=== PATIENT | female | born 1955 | race Caucasian/White ===

== ENCOUNTER → 2016-12-14 | Outpatient (CLI) | payer BC ==
[~2016-12-14] MED LIST: ASPI81TA28 PO; GLUCTAB7 PO; MISC4CAP PO; MULT-614 PO; NXM/40 PO; SIMV5TAB5 PO; [UNRECOGNIZED DRUG - CODE] PO
--- NOTE | 2016-12-14 09:03 | DIAGNOSTIC IMAGING REPORT ---
C-SPINE ROUTINE 4 OR 5 VIEWS CLINICAL HISTORY: Persistent neck pain localized to the C7/T1 area COMPARISON STUDY: No previous studies for comparison. FINDINGS: The prevertebral soft tissues are normal. No fractures or subluxations are visualized. There are degenerative changes most pronounced at the C4-5 and C5-C6 levels. There are small uncinate spurs with minor foraminal encroachment at the C4-5 and C5-C6 levels. IMPRESSION: Degenerative changes the C4-5 and C5-6 levels. Electronically signed by: Jamshid Moon M.D. 12/14/2016 9:01 AM Dictated Date/Time: 12/14/2016 9:00 AM
== END | disposition home or self-care (01) ==
LOC: C.RADBC 08:13
PROVIDERS: ATTEND Chiropractor
DX: M54.2 Cervicalgia (principal); M50.321 Other cervical disc degeneration at C4-C5 level; M50.322 Other cervical disc degeneration at C5-C6 level

== ENCOUNTER → 2016-12-15 | Outpatient (CLI) | payer BC ==
--- NOTE | 2016-12-16 12:40 | MAMMOGRAPHY REPORT ---
BILATERAL DIGITAL SCREENING MAMMOGRAM TOMOSYNTHESIS WITH CAD: 12/15/2016 CLINICAL HISTORY: Routine screening. Patient has no complaints. TECHNIQUE: Breast tomosynthesis in addition to standard 2D mammography was performed. Current study was also evaluated with a Computer Aided Detection (CAD) system. COMPARISON: Comparison is made to exams dated: 12/13/2015 mammogram, 12/08/2013 mammogram, 12/11/2014 mammogram, 11/18/2010 mammogram, 11/19/2011 mammogram - [facility], and 11/06/2008. BREAST COMPOSITION: There are scattered areas of fibroglandular density in both breasts. FINDINGS: Focal asymmetries in the upper outer posterior, and 6:00 middle to anterior right breast are stable on all available prior mammograms dating back to at least 11/06/2008, therefore likely be nign. No new suspicious mass, architectural distortion or cluster of microcalcifications is seen. IMPRESSION: ACR BI-RADS CATEGORY 1: NEGATIVE There is no mammographic evidence of malignancy. A 1 year screening mammogram is recommended. The p atient will receive written notification of the results. Approximately 10% of breast cancers are not detected with mammography. A negative mammographic repor t should not delay biopsy if a clinically suggestive mass is present. Alina Barnhart M.D. ay/:12/15/2016 17:37:15 Advertising Clerk: [place] AUSTIN(Alejandro)(M), [facility] letter sent: Normal 1/2 BI-RADS Code: ACR BI-RADS Category 1: Negative
== END | disposition home or self-care (01) ==
LOC: C.MAMM 15:21
PROVIDERS: ATTEND Obstetrics & Gynecology
DX: Z12.31 Encounter for screening mammogram for malignant neoplasm of breast (principal)

== ENCOUNTER → 2017-02-09 | Outpatient (CLI) | payer BC ==
[2017-02-09 10:48] LABS: BASO % 0.5 %; BASO ABS # 0.03 K/uL (0-0.2); COMPLETE YES; EOS % 1.8 %; HEMATOCRIT 45.2 % (37-47); IG% 0.3 %; LYMPH % 28.9 %; LYMPH ABS # 1.76 K/uL (1.2-3.4); MEAN CELL VOLUME 90.2 fL (80-100); MEAN CORPUSCULAR HEMOGLOBIN 30.3 pg (25-34); MEAN CORPUSCULAR HGB CONC 33.6 g/dl (32-36); MEAN PLATELET VOLUME 9.8 fL (7.4-10.4); MONO % 8.2 %; NEUT % 60.3 %; PLATELET COUNT 263 K/uL (130-400); RED BLOOD COUNT 5.01 M/uL (4.2-5.4); WHITE BLOOD COUNT 6.08 K/uL (4.8-10.8)
[2017-02-09 11:00] LABS: CALCIUM 9.1 mg/dl (8.5-10.1)
[2017-02-09 11:09] LABS: BLOOD UREA NITROGEN 20 mg/dl (7-18); BUN/CREATININE RATIO 20.6 (10-20); CARBON DIOXIDE 31 mmol/L (21-32); CHLORIDE 107 mmol/L (98-107); CREATININE 0.95 mg/dl (0.60-1.20); GLUCOSE 97 mg/dl (70-99); POTASSIUM 4.5 mmol/L (3.5-5.1); SODIUM 141 mmol/L (136-145)
[2017-02-09 11:10] LABS: ALT/SGPT 36 U/L (12-78); CHOLESTEROL 194 mg/dl (0-200); TRIGLYCERIDES 107 mg/dl (0-150); VERY LOW DENSITY LIPOPROT CALC 21 mg/dl
[2017-02-09 11:11] LABS: ALB/GLOB RATIO 1.1 (0.9-2); ALKALINE PHOSPHATASE 76 U/L (45-117); AST/SGOT 24 U/L (15-37); CHOLESTEROL/HDL RATIO 2.9; HDL CHOLESTEROL 67 mg/dl; LDL CHOLESTEROL CALCULATED 106 mg/dl
== END | disposition home or self-care (01) ==
LOC: C.LABBC 07:41
PROVIDERS: ATTEND Internal Medicine Pulmonary Disease
DX: M47.812 Spondylosis without myelopathy or radiculopathy, cervical region (principal)

== ENCOUNTER → 2017-04-05 | Outpatient (CLI) | payer BC ==
[2017-04-05 13:59] LABS: ESTIMATED AVERAGE GLUCOSE 114 mg/dl; HA1C FLAG Normal (Normal)
== END | disposition home or self-care (01) ==
LOC: C.LABBC 11:34
PROVIDERS: ATTEND Physician Assistant Medical
DX: R20.0 Anesthesia of skin (principal); R20.2 Paresthesia of skin

== ENCOUNTER → 2017-06-07 | Outpatient (CLI) | payer BC ==
--- NOTE | 2017-06-07 10:11 | DIAGNOSTIC IMAGING REPORT ---
ABDOMEN COMPLETE (US) HISTORY: Pain. Nausea. K21.9 Esophageal reflux [id number] Abdominal [id number]. COMPARISON: 09/11/2013 FINDINGS: Pancreas: The pancreas demonstrates a normal echotexture. Liver: Unremarkable. Gallbladder: Surgically absent CBD: 4 mm Kidneys: No evidence for right renal hydronephrosis. 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 Spleen: Normal in size. Aorta: Normal in caliber. IVC: Patent. IMPRESSION: 1. Prior cholecystectomy. 2. Remainder the study shows no acute process. The above report was generated using voice recognition software. It may contain grammatical, syntax or spelling errors. Electronically signed by: Nehemias Simons M.D. 06/07/2017 10:09 AM Dictated Date/Time: 06/07/2017 10:08 AM
== END | disposition home or self-care (01) ==
LOC: C.ULTRBC 09:27
PROVIDERS: ATTEND Physician Assistant Medical
DX: K21.9 Gastro-esophageal reflux disease without esophagitis (principal); R14.0 Abdominal distension (gaseous); Z90.49 Acquired absence of other specified parts of digestive tract

== ENCOUNTER → 2017-12-16 | Outpatient (CLI) | payer OTHER ==
--- NOTE | 2017-12-17 07:22 | MAMMOGRAPHY REPORT ---
BILATERAL DIGITAL SCREENING MAMMOGRAM TOMOSYNTHESIS WITH CAD: 12/16/2017 CLINICAL HISTORY: Routine screening. TECHNIQUE: Breast tomosynthesis in addition to standard 2D mammography was performed. Current study was also evaluated with a Computer Aided Detection (CAD) system. COMPARISON: Comparison is made to exams dated: 12/15/2016 mammogram, 12/13/2015 mammogram, 12/11/2014 m ammogram, 12/08/2013 mammogram, 11/22/2012 mammogram, and 11/19/2011 mammogram - [facility]. BREAST COMPOSITION: There are scattered areas of fibroglandular density in both breasts. FINDINGS: No suspicious masses, calcifications, or areas of architectural distortion are noted in ei ther breast. There has been no significant interval change compared to prior exams. Bilateral breast asymmetries are stable compared to prior exams. IMPRESSION: ACR BI-RADS CATEGORY 2: BENIGN There is no mammographic evidence of malignancy. A 1 year screening mammogram is recommended. The pa tient will receive written notification of the results. Approximately 10% of breast cancers are not detected with mammography. A negative mammographic report should not delay biopsy if a clinically suggestive mass is present. Lily Carter M.D. /:12/16/2017 15:00:08 Drywall Application Supervisor: Timi AUSTIN(R)(M), [facility] letter sent: Normal 1/2 BI-RADS Code: ACR BI-RADS Category 2: Benign
== END | disposition home or self-care (01) ==
LOC: C.MAMM 10:36
PROVIDERS: ATTEND Obstetrics & Gynecology
DX: Z12.31 Encounter for screening mammogram for malignant neoplasm of breast (principal)

== ENCOUNTER → 2018-05-04 | Day surgery (SDC) | payer OTHER ==
[2018-04-28 14:08] VITALS: BMI 28.0
[~2018-05-04] VITALS: Ht 157.5 cm; Wt 69.1 kg
[~2018-05-04] MED LIST changes: +LIDOCAINE HCL 2% 2 ML VIAL (20MG/ML) ONE; +PROPOFOL IV EMULSION 10 MG/ML 20 ML VIAL ONE; +SODIUM CHLORIDE 0.9% 500ML 500 ML IV ONE
[2018-05-04 11:10] VITALS: TEMP 36.5
[2018-05-04 11:11] VITALS: Ht 157.5 cm; Wt 69.1 kg
--- NOTE | 2018-05-04 11:49 | Endo History and Physical ---
History & Physical Date of Service: May 04, 2018. Chief Complaint: REFLUX, RECTAL BLEEDING Referring Physician: DR PIERRE History of Present Illness Reflux and rectal bleeding. Past Surgical History Hx Cardiac Surgery: No Hx Internal Defibrillator: No Hx Pacemaker: No Hx Abdominal Surgery: Yes (APPY, LIZZETH) Hx of Implantable Prosthesis: No Hx Post-Op Nausea and Vomiting: No Hx Cancer Surgery: No Hx Thoracic Surgery: No Hx Orthopedic: Yes (RT FOOT SECOND TOE GANGLION CYST SURGERY) Hx Urinary Tract Surgery: No Family History Polyp Social History Smoking Status: Never Smoker Hx Substance Use: No Hx Alcohol Use: Yes (OCCASIONALLY) Allergies Coded Allergies: Cephalexin (Unverified Allergy, Mild, ESOPHAGEAL SPASMS, 04/28/18) Omeprazole (Unverified Allergy, Mild, HEART PALPITATIONS, 04/28/18) Epinephrine (Verified Allergy, Unknown, HEART RACING, 04/28/18) Ibuprofen (Verified Allergy, Unknown, HIVES ? RELATED TO MOTRIN, 04/28/18) CAN TOLERATE ALEVE AND TYLENOL Sulfa Antibiotics (Verified Allergy, Unknown, RASH, 04/28/18) Current Medications Reported Home Medications Medications Dose Route/Sig Max Daily Dose Days Date Category Vitamin C Tr (Ascorbic Acid) 1,000 Mg Tab 1,000 Mg PO HS 05/29/14 Reported Align (Probiotic Product) 4 Mg Cap 4 Mg PO HS 05/29/14 Reported Zocor (Simvastatin) 5 Mg Tab 5 Mg PO HS 05/29/14 Reported Nexium (Esomeprazole Magnesium) 40 Mg Cap 40 Mg PO HS 05/29/14 Reported Glucosamine Chondroitin (Zhtghhmahye-Fzbrijqztgv-Znu C-) 1 Tab Tab 2 Tabs PO HS 05/29/14 Reported Centrum Silver Ultra Wome (Multiple Vitamins W/ Minerals) 1 Tab Tab 1 Tab PO HS 05/29/14 Reported Aspirin Ec (Aspirin) 81 Mg Tab 81 Mg PO HS 05/29/14 Reported Vital Signs Weight (Kilograms): 69.09 Height (Feet): 5 Height (Inches): 2 Date Time Temp Pulse Resp B/P (MAP) Pulse Ox O2 Delivery O2 Flow Rate FiO2 05/04/18 11:10 36.5 63 18 125/74 (91) 98 Room Air Physical Exam General Appearance: no apparent distress Respiratory/Chest: Auscultation: breath sounds normal Cardiovascular: Heart Auscultation: RRR Abdomen: Inspection & Palpation: soft Assessment and Plan stable for EGD and colonoscopy
--- NOTE | 2018-05-04 12:18 | Discharge Instructions ---
Endoscopy Patient Instructions Date / Procedure(s) Performed May 04, 2018. Colonoscopy, EGD Allergy Information Coded Allergies: Cephalexin (Unverified Allergy, Mild, ESOPHAGEAL SPASMS, 04/28/18) Omeprazole (Unverified Allergy, Mild, HEART PALPITATIONS, 04/28/18) Epinephrine (Verified Allergy, Unknown, HEART RACING, 04/28/18) Ibuprofen (Verified Allergy, Unknown, HIVES ? RELATED TO MOTRIN, 04/28/18) CAN TOLERATE ALEVE AND TYLENOL Sulfa Antibiotics (Verified Allergy, Unknown, RASH, 04/28/18) Discharge Date / Findings May 04, 2018. EGD showed normal esophagus, multiple fundic gland polyps Colonoscopy showed internal hemorrhoids Medication Instructions Stopped Medication(s): TAKES ASPIRIN DAILY LAST DOSE 05/03/18 Provider Instructions Activity Restrictions - No exercising or heavy lifting for 24 hours. - Do not drink alcohol the day of the procedure. - Do not drive a car or operate machinery until the day after the procedure. - Do not make any important decisions or sign important papers in 24 hours after the procedure. Following Day: - Return to full activity which may include returning to work/school. Diet Start your diet with liquids and light foods (jello, soup, juice, toast). Then eat your usual diet if not nauseated. Treatment For Common After Affects For mild abdominal pain, bloating, or excessive gas: - Rest - Eat lightly - Lie on right side Follow-Up Information Follow-up with DR PIERRE as scheduled Anesthesia Information What You Should Know You have had a procedure that required some medicine to reduce anxiety and discomfort. This treatment is called moderate sedation. After receiving the treatment, you may be sleepy, but you will be able to breathe on your own. The effects of the treatment may last for several hours. Follow these instructions along with Activity/Diet recommendations noted above: * Do NOT do anything where dizziness or clumsiness would be dangerous. * Rest quietly at home today, then you can be up and about tomorrow. * Have a responsible person stay with you the rest of today. * You may have had an I.V. today. If so, you may take the dressing off later today. Recommendations Call your doctor if: * Trouble breathing * Continuous vomiting for more than 24 hours * Temperature above 101 degrees * Severe abdominal pain or bloating * Pain not relieved by pain medicine ordered * There is increased drainage or redness from any incision * A large amount of rectal bleeding greater than 2-3 tablespoons. (If you had a polyp/s removed or have hemorrhoids, a small amount of blood - from the rectum is to be expected.) * You have any unanswered questions or concerns. IN THE EVENT OF A SERIOUS EMERGENCY, GO TO THE NEAREST EMERGENCY ROOM Your discharge instructions were prepared by provider Lillie Aguilar. Patient Instructions Signature Page Aminata Krishnamurthy Patient (or Guardian) Signature/Date: I have read and understand the instructions given to me by my caregivers. Caregiver/RN/Doctor Signature/Date: The above-named patient and/or guardian has received patient instructions on this date. + Original Patient Signature Page (only) stays with chart. Please make copy for patient.
--- NOTE | 2018-05-04 12:23 | GI REPORT ---
Patient Name: Aminata Mcgregor Procedure Date: 05/04/2018 11:56 AM Date of : 1955 Admit Type: Outpatient Age: 63 Gender: Female Attending MD: Lillie Aguilra MD Procedure: Upper GI endoscopy Providers: Lillie Aguilar MD Referring MD: Moris Gaines Md Indications: Heartburn, Follow-up of gastro-esophageal reflux disease Medicines: Monitored Anesthesia Care Complications: No immediate complications. Estimated Blood Loss: Estimated blood loss: none. Procedure: Pre-Anesthesia Assessment: - Prior to the procedure, a History and Physical was performed, and patient medications and allergies were reviewed. The patient is competent. The risks and benefits of the procedure and the sedation options and risks were discussed with the patient. All questions were answered and informed consent was obtained. Patient identification and proposed procedure were verified by the physician and the nurse in the procedure room. Mental Status Examination: normal. Airway Examination: normal oropharyngeal airway and neck mobility. Respiratory Examination: clear to auscultation. CV Examination: normal. ASA Grade Assessment: II - A patient with mild systemic disease. After reviewing the risks and benefits, the patient was deemed in satisfactory condition to undergo the procedure. The anesthesia plan was to use monitored anesthesia care (MAC). Immediately prior to administration of medications, the patient was re-assessed for adequacy to receive sedatives. The heart rate, respiratory rate, oxygen saturations, blood pressure, adequacy of pulmonary ventilation, and response to care were monitored throughout the procedure. The physical status of the patient was re-assessed after the procedure. After obtaining informed consent, the endoscope was passed under direct vision. Throughout the procedure, the patient's blood pressure, pulse, and oxygen saturations were monitored continuously. The scope was introduced through the mouth, and advanced to the second part of duodenum. The upper GI endoscopy was accomplished without difficulty. The patient tolerated the procedure well. Findings: The Z-line was regular and was found 39 cm from the incisors. The examined esophagus was normal. Multiple medium sessile polyps with no stigmata of recent bleeding were found in the gastric body. Biopsies were taken with a cold forceps for histology. Verification of patient identification for the specimen was done by the physician and nurse using the patient's name and date. The duodenal bulb and second portion of the duodenum were normal. Biopsies were taken with a cold forceps for histology. Impression: - Z-line regular, 39 cm from the incisors. - Normal esophagus. - Multiple gastric polyps likely fundic gland. Biopsied. - Normal duodenal bulb and second portion of the duodenum. Biopsied. Recommendation: - Await pathology results. - Perform a colonoscopy. Lillie Aguilar MD 05/04/2018 12:23:08 PM This report has been signed electronically. Note Initiated On: 05/04/2018 11:56 AM Number of Addenda: 0 I attest to the content of the Intraoperative Record and orders documented therein, exceptions below {[id number]}
--- NOTE | 2018-05-04 12:25 | GI REPORT ---
Patient Name: Aminata Mcgregor Procedure Date: 05/04/2018 12:04 PM Date of : 1955 Admit Type: Outpatient Age: 63 Gender: Female Attending MD: Lillie Aguilar MD Procedure: Colonoscopy Providers: Lillie Aguilar MD Referring MD: Moris Gaines Md Indications: Rectal bleeding Medicines: Monitored Anesthesia Care Complications: No immediate complications. Estimated Blood Loss: Estimated blood loss: none. Procedure: Pre-Anesthesia Assessment: - Prior to the procedure, a History and Physical was performed, and patient medications and allergies were reviewed. The patient is competent. The risks and benefits of the procedure and the sedation options and risks were discussed with the patient. All questions were answered and informed consent was obtained. Patient identification and proposed procedure were verified by the physician and the nurse in the procedure room. Mental Status Examination: alert and oriented. Airway Examination: normal oropharyngeal airway and neck mobility. Respiratory Examination: clear to auscultation. CV Examination: normal. ASA Grade Assessment: II - A patient with mild systemic disease. After reviewing the risks and benefits, the patient was deemed in satisfactory condition to undergo the procedure. The anesthesia plan was to use monitored anesthesia care (MAC). Immediately prior to administration of medications, the patient was re-assessed for adequacy to receive sedatives. The heart rate, respiratory rate, oxygen saturations, blood pressure, adequacy of pulmonary ventilation, and response to care were monitored throughout the procedure. The physical status of the patient was re-assessed after the procedure. After I obtained informed consent, the scope was passed under direct vision. Throughout the procedure, the patient's blood pressure, pulse, and oxygen saturations were monitored continuously. The scope was introduced through the anus and advanced to the terminal ileum. The colonoscopy was performed without difficulty. The patient tolerated the procedure well. The terminal ileum, ileocecal valve, appendiceal orifice, and rectum were photographed. The quality of the bowel preparation was good. Findings: The perianal and digital rectal examinations were normal. The terminal ileum appeared normal. Non-bleeding internal hemorrhoids were found during retroflexion. The hemorrhoids were small. The exam was otherwise without abnormality. Impression: - The examined portion of the ileum was normal. - Non-bleeding internal hemorrhoids. - The examination was otherwise normal. - No specimens collected. Recommendation: - Discharge patient to home. - Preparation H suppository: Insert rectally as necessary. - Repeat colonoscopy in 5 years for screening purposes. - Return to referring physician. Lillie Aguilar MD 05/04/2018 12:25:23 PM This report has been signed electronically. Note Initiated On: 05/04/2018 12:04 PM Number of Addenda: 0 I attest to the content of the Intraoperative Record and orders documented therein, exceptions below {[id number]}
--- NOTE | 2018-05-04 12:48 | Anesthesiology Progress Note ---
Anesthesia Post Op Note Date & Time May 04, 2018 at 12:48 Vital Signs Pain Intensity: 0 Vital Signs Past 12 Hours Date Time Temp Pulse Resp B/P (MAP) Pulse Ox O2 Delivery O2 Flow Rate FiO2 05/04/18 12:38 48 18 121/82 (95) 99 Room Air 05/04/18 12:23 68 18 110/66 (81) 100 Room Air 05/04/18 11:10 36.5 63 18 125/74 (91) 98 Room Air Notes Mental Status: alert / awake / arousable, participated in evaluation Pt Amnestic to Procedure: Yes Nausea / Vomiting: adequately controlled Pain: adequately controlled Airway Patency, RR, SpO2: stable & adequate BP & HR: stable & adequate Hydration State: stable & adequate Anesthetic Complications: no major complications apparent
[2018-05-04 12:56] VITALS: BP 143/80; PULSE 45; O2SAT 99
== END | disposition home or self-care (01) ==
LOC: C.GI 10:23
PROVIDERS: ATTEND Student in an Organized Health Care Education/Training Program
DX: K62.5 Hemorrhage of anus and rectum (principal); R12 Heartburn; K29.50 Unspecified chronic gastritis without bleeding; K64.8 Other hemorrhoids; K31.7 Polyp of stomach and duodenum; Z83.71 Family history of colonic polyps; Z88.2 Allergy status to sulfonamides; Z79.899 Other long term (current) drug therapy; Z79.82 Long term (current) use of aspirin